=== PATIENT | female | born 1945 | race Caucasian/White ===

== ENCOUNTER 2020-09-09 15:02 | Emergency (ER) | payer OTHER, MEDICAID ==
[~2020-09-09] VITALS: Ht 157.5 cm; Wt 80.0 kg
[2020-09-09] MEDS ORDERED: LABETALOL HCL 20MG/4ML CARPUJECT IV ONE (15:15)
[2020-09-09] MEDS ORDERED: LABETALOL 5MG/ML SYR 20 MG/4 ML SYRINGE IV NR (15:15)
[2020-09-09 15:31] LABS: BASOPHILS % 0.4 % (0.0-2.0); EOSINOPHILS % 0.7 % (0.0-5.0); HEMATOCRIT. 43.4 % (36.0-48.0); HEMOGLOBIN. 14.4 g/dL (12.0-16.0); LYMPHOCYTES % 33.2 % (20.0-50.0); MEAN CORPUSCULAR HEMOGLOBIN 30.3 pg (28.0-32.0); MEAN CORPUSCULAR VOLUME 91.3 fL (81.0-99.0); MEAN PLATELET VOLUME 9.6 fl (7.4-10.4); MONOCYTES % 7.4 % (2.0-8.0); NEUTROPHILS % 58.3 % (40.0-76.0); PLATELET 196 x1000/uL (130-400); RED BLOOD CELL COUNT 4.75 mill/uL (4.2-5.4); RED CELL DISTRIBUTION WIDTH 13.5 % (11.6-14.6)
[2020-09-09 15:38] LABS: PROTHROMBIN TIME 10.3 sec (9.6-11.0)
[2020-09-09 15:39] LABS: CHLORIDE 98 mEq/L (98-107)
[2020-09-09] MEDS ORDERED: ASPIRIN 325MG EC TABLET PO ONE (16:00)
[2020-09-09] MEDS ORDERED: INSULIN REGULAR (HUMULIN R) 300UNITS/3ML VIAL SUBCUT ONE (16:00)
[2020-09-09 17:00] VITALS: BP 172/75
== END 2020-09-09 19:33 | disposition short-term general hospital (02) ==
LOC: ER 15:02 → EDBEDREQ 15:12 → EDBEDREQSVC 15:52 → EDBEDREQTM 15:52 → ER 19:33 → CANBEDREQ 22:27
DX: I63.9 Cerebral infarction, unspecified (principal); I16.1 Hypertensive emergency; R47.02 Dysphasia; R29.810 Facial weakness; E11.65 Type 2 diabetes mellitus with hyperglycemia; Z79.4 Long term (current) use of insulin
CPT/HCPCS: 36415; 70450; 71045; 80053; 82962; 84484; 85025; 85610; 93005; 96374; 99285; J1815; J3490